=== PATIENT | female | born 1990 | race Caucasian/White ===

== ENCOUNTER 2019-11-21 21:40 | Emergency (ER) | payer OTHER, MEDICAID ==
[~2019-11-21] VITALS: Ht 175.3 cm; Wt 77.1 kg
[2019-11-21 22:05] LABS: URINE BLOOD NEGATIVE (Negative); URINE CLARITY CLEAR; URINE COLOR YELLOW; URINE GLUCOSE-RANDOM NEGATIVE (Negative); URINE LEUKOCYTES-REFLEX NEGATIVE (Negative); URINE NITRITE-REFLEX NEGATIVE (Negative); URINE PROTEIN 1+ (Negative); URINE SPECIFIC GRAVITY >= 1.030 (1.005-1.030); URINE UROBILINOGEN 0.2 E.U./dl (0.2-1.0)
[2019-11-21 22:08] LABS: ICTOTEST (BILI CONFIRMATORY) Negative (Negative); URINE BILIRUBIN 2+ (Negative); URINE KETONES 3+ (Negative)
[2019-11-21 22:11] LABS: HEMATOCRIT 40.2 % (37.0-47.0); HEMOGLOBIN 13.2 gm/dL (12.0-15.0); MCH 25.6 pg (26.0-34.0); MCHC 32.9 g/dL (28.0-37.0); MCV 77.8 fL (80.0-100.0); MPV 9.1 fl. (7.2-11.1); NUCLEATED RBCS 0 /100WBC; PLATELET COUNT* 274 thou/uL (150-400); RBC 5.17 mil/uL (4.20-5.00); RDW-CV 14.7 % (10.5-14.5); WBC 15.9 thou/uL (4.0-11.0)
[2019-11-21 22:21] LABS: CALCIUM 9.5 mg/dL (8.5-10.1); CREATININE 0.9 mg/dL (0.6-1.3); POTASSIUM 3.5 mmol/L (3.5-5.1)
[2019-11-21 22:39] LABS: ALBUMIN 4.3 g/dL (3.4-5.0); TOTAL BILIRUBIN 0.5 mg/dL (<0.1-1.0); TOTAL PROTEIN 8.1 g/dL (6.4-8.2)
[2019-11-21 22:42] LABS: ABSOLUTE LYMPHOCYTES 1.4 thou/uL (0.8-5.3); ABSOLUTE MONOCYTES 0.2 thou/uL (0.0-1.2); ABSOLUTE NEUTROPHILS 14.3 thou/uL (1.6-8.1); PLATELET ESTIMATE ADEQUATE
[2019-11-21 23:17] VITALS: BP 123/50
--- NOTE | 2019-11-22 17:05 | EKG ---
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
== END 2019-11-21 23:17 | disposition home or self-care (01) ==
LOC: M.ERS 21:40
PROVIDERS: Family Medicine
DX: O21.8 Other vomiting complicating pregnancy (principal); O26.891 Other specified pregnancy related conditions, first trimester; R07.89 Other chest pain; O99.331 Smoking (tobacco) complicating pregnancy, first trimester; Z3A.08 8 weeks gestation of pregnancy; Z90.49 Acquired absence of other specified parts of digestive tract